=== PATIENT | female | born 1935 | race Caucasian/White ===

== ENCOUNTER 2017-11-14 14:58 | Emergency (ER) | payer OTHER ==
[~2017-11-14] VITALS: Ht 162.6 cm; Wt 49.9 kg
[~2017-11-14 14:58] MED LIST: ACETAMINOPHEN325 M1 PO; ARICEPT10 MG PO; ASPIR-LOW81 MG PO; ATENOLOL50 MG PO; B-121500 MCG PO; CALCIUM 500 +1 EAC4 PO; CELEXA20 MG PO; DONEPEZIL HCL23 MG PO; LEVETIRACETAM250 MG PO; NAMENDA5 MG PO; OSCAL, OYSTER500 MG PO; PRAVACHOL20 MG PO; PRAVASTATIN SOD20 MG PO; RANITIDINE HCL150 MG PO; SIMVASTATIN40 MG PO; TOPIRAGEN25 MG PO; TOPIRAMATE25 MG PO; TYLENOL REGULA325 MG PO; Zantac,Taladine PO; celeBREX PO
[2017-11-14 15:51] LABS: BASOPHIL COUNT 0.1 K/uL (0-0.1); EOSINOPHIL (%) 4.6 % (0-5); EOSINOPHIL COUNT 0.3 K/uL (0-0.3); HEMATOCRIT 36.1 % (36.0-46.0); HEMOGLOBIN 12.2 G/DL (11.9-15.5); LYMPHOCYTE (%) 32.8 % (15-42); LYMPHOCYTE COUNT 1.9 K/uL (1.0-2.8); MCH 31.4 PG (29.0-34.0); MCHC 33.8 G/DL (30.0-36.0); MONOCYTE (%) 6.3 % (3-12); MONOCYTE COUNT 0.4 K/uL (0-0.8); NEUTROPHIL (%) 55.3 % (45-76); NEUTROPHIL COUNT 3.2 K/uL (1.8-6.4); PLATELET COUNT 193 K/uL (156-360); RBC DIS.WIDTH-CV 11.9 % (11.8-14.6); RBC DIS.WIDTH-SD 40.6 % (39-53); RED BLOOD COUNT 3.88 M/uL (3.80-5.20); WHITE BLOOD COUNT 5.9 K/uL (4.1-10.2)
[2017-11-14 16:00] LABS: ALBUMIN 3.8 g/dL (3.2-4.8); CHLORIDE 109 mEq/L (99-109); POTASSIUM 4.7 mEq/L (3.7-5.4); SODIUM 143 mEq/L (136-147)
[2017-11-14 16:02] LABS: GLUCOSE 99 mg/dL (70-99); TOTAL PROTEIN 6.6 g/dL (6.4-8.3)
[2017-11-14 16:04] LABS: TOTAL BILIRUBIN 0.2 mg/dL (0.0-1.0)
[2017-11-14 16:06] LABS: ALKALINE PHOSPHATASE 75 IU/L (3-129); CREATININE 0.9 mg/dL (0.6-1.3); GFR ESTIMATE (CALCULATED) > 59 mL/min/
[2017-11-14 16:07] LABS: UREA NITROGEN (BUN) 15 mg/dL (9-23)
[2017-11-14 16:08] LABS: AST (GOT) 17 IU/L (2-34)
[2017-11-14 16:09] LABS: ALT (GPT) 12 IU/L (3-49)
[2017-11-14 16:49] LABS: APPEARANCE CLOUDY ((CLEAR)); BILIRUBIN NEGATIVE; BLOOD NEGATIVE; COLOR YELLOW ((YELLOW)); GLUCOSE (STRIP) NEGATIVE; KETONES NEGATIVE; LEUKOCYTES NEGATIVE; NITRITE NEGATIVE; PROTEIN (STRIP) NEGATIVE; SPECIFIC GRAVITY 1.017 (1.000-1.030); UROBILINOGEN 0.2 MG/DL (0.2-1.0)
[2017-11-14 16:53] LABS: SOURCE SWAB
[2017-11-14 16:57] LABS: BACTERIA RARE /HPF; EPITHELIAL CELLS RARE /HPF; MUCUS TRACE /LPF; RED BLOOD CELLS 0-5 /HPF (0-5); WHITE BLOOD CELLS 0-5 /HPF (0-5)
[2017-11-14 20:44] VITALS: BP 135/98
== END 2017-11-14 20:44 ==
LOC: EME 14:58
PROVIDERS: Emergency Medicine
DX: N95.2 Postmenopausal atrophic vaginitis (principal); R10.30 Lower abdominal pain, unspecified; F03.90 Unspecified dementia, unspecified severity, without behavioral disturbance, psychotic disturbance, mood disturbance, and anxiety; F32.9 Major depressive disorder, single episode, unspecified; Z79.82 Long term (current) use of aspirin; Z86.69 Personal history of other diseases of the nervous system and sense organs
CPT/HCPCS: 74177; 80053; 81003; 85025; 87210; 87491; 87591; 99281; 99285; J7040